=== PATIENT | female | born 1955 | race Caucasian/White ===

== ENCOUNTER 2020-02-24 12:09 | Emergency (ER) | payer BC ==
[~2020-02-24] VITALS: Ht 160 cm; Wt 54.4 kg
== END 2020-02-24 15:15 ==
LOC: ED 12:09
DX: S92.512A Displaced fracture of proximal phalanx of left lesser toe(s), initial encounter for closed fracture (principal); X58.XXXA Exposure to other specified factors, initial encounter; Y93.89 Activity, other specified; Y92.89 Other specified places as the place of occurrence of the external cause; Y99.8 Other external cause status

== ENCOUNTER 2022-01-05 14:16 | Emergency (ER) | payer BC ==
[~2022-01-05] VITALS: Ht 162.5 cm; Wt 54.0 kg
== END 2022-01-05 15:57 | disposition home or self-care (01) ==
LOC: ED 14:16
DX: S00.83XA Contusion of other part of head, initial encounter (principal); W01.0XXA Fall on same level from slipping, tripping and stumbling without subsequent striking against object, initial encounter; Y93.89 Activity, other specified; Y92.89 Other specified places as the place of occurrence of the external cause; Y99.8 Other external cause status